=== PATIENT | female | born 1985 | race Caucasian/White ===

== ENCOUNTER 2017-04-26 13:46 | Outpatient (CLI) | payer BC ==
--- NOTE | 2017-04-26 17:15 | ULT ---
OBSTETRICAL ULTRASOUND: Date: 04-26-17 Comparison: None. History: 23-year-old female undergoing initial ultrasound of the pelvis secondary to . Technique: Multiplanar grayscale sonographic imaging of the pelvis is provided with transabdominal i maging. Adnexal regions are assessed with color flowspectral analysis. FINDINGS: The uterus measures 15.0 x 8.2 x 13.7 cm. There is a large complex lobulated heterogeneous hypoechoi c mass associated with the uterine fundus measuring in the 7.7 x 10.3 x 8.6 cm range, suggesting a l arge fundal fibroid. There is an intrauterine gestational sac present abutting the inferior aspect o f this uterine fibroid, which contains a single pole demonstrating a heart rate in the 1 85 beats/min range. The right ovary could not be visualized on this exam. The left ovary measures 4. 1 x 2.1 x 2.6 cm and demonstrates normal blood flow without evidence for mass. No free fluid is seen in the pelvic cul-de-sac. biometry: [place]-rump length 2.3 cm 9 weeks 0 days Gestational sac diameter 4.1 cm 9 weeks 4 days Average gestational age based on ultrasound is 9 weeks 2 days with an estimated date of delivery on 11-27-17. IMPRESSION: 1. Single intrauterine gestational sac as detailed above. Findings suggesting a large complex uterin e fibroid in the fundus measuring up to 10.3 cm. Recommend short term follow up imaging given the si ze of the suspected uterine fibroid and its proximity to the gestational sac. POS: [facility]
== END 2017-04-26 13:47 | disposition home or self-care (01) ==
LOC: ULT 13:46
PROVIDERS: ATTEND Family Medicine
DX: N91.2 Amenorrhea, unspecified (principal)
CPT/HCPCS: 76805

== ENCOUNTER 2017-08-31 04:07 | Day surgery (SDC) | payer BC ==
[2017-08-31 04:36] VITALS: BP 114/68; TEMP 98.7; BMI 29.5
[2017-08-31 05:47] LABS: Bilirubin Negative (Negative); Blood, Urine Negative (Negative); Clarity CLOUDY (Clear); Glucose, Urine (Dipstick) Negative (Negative); Leukocyte Small (Negative); Nitrite Negative (Negative); Protein, Urine (Dipstick) Negative (Neg-Trace); Specific Gravity, Urine 1.012 (1.002-1.036); Urobilinogen 0.2 mg/dL (0.2-1.0); pH, Urine 6.5 (5.0-9.0)
[2017-08-31 05:50] LABS: Bacteria/HPF 2+ HPF (None Seen); Pathc Cast-AUWi Flag 1.89 (0-2.49)
[2017-08-31 05:52] LABS: Yeast-AUWi Flag 72.3 (0-25.0)
[2017-08-31 06:13] LABS: RBC/HPF 0-3 HPF (0-3)
[2017-08-31 06:14] LABS: Hyaline Casts/LPF NONE SEEN LPF (0-3 Hyaline); Yeast-All Forms None Seen HPF (None Seen)
[2017-08-31 06:55] LABS: Bilirubin Negative (Negative); Blood, Urine Negative (Negative); Clarity CLEAR (Clear); Glucose, Urine (Dipstick) Negative (Negative); Leukocyte Negative (Negative); Nitrite Negative (Negative); Protein, Urine (Dipstick) Negative (Neg-Trace); Specific Gravity, Urine 1.013 (1.002-1.036); Urobilinogen 0.2 mg/dL (0.2-1.0); pH, Urine 6.5 (5.0-9.0)
[2017-08-31 06:57] LABS: Bacteria/HPF None Seen HPF (None Seen); Hyaline Casts/LPF 4-6 HYALINE CAST LPF (0-3 Hyaline); Pathc Cast-AUWi Flag 0.94 (0-2.49); RBC/HPF None Seen HPF (0-3); Squamous Epithelial 0-3 HPF (0-3); WBC/HPF None Seen HPF (0-3)
--- NOTE | 2017-08-31 07:11 | PRG ---
DATE OF SERVICE: 08/31/2017 PRIMARY SUPERVISOR BUFFING AND PASTING: Dr. Margaret Flores CHIEF COMPLAINT: Abdominal pain. HISTORY OF PRESENT ILLNESS: The patient is a 32-year-old G1, P0 female with an intrauterine at 27 weeks and 2 days who is presenting with a 2-day history of lower left pelvic pain that she reports it is worse with movement, getting out of bed, climbing stairs, walking. She reports when she is at rest it is much improved. She does admit she has had one episode where she has felt a contraction that her abdomen has gotten hard. Other than that, she has not felt any other contractions to her knowledge. The patient denies any burning or frequency of urination. She denies any change in discharge or leakage of fluid or vaginal bleeding. She denies fever, fall, headache, chest pain, shortness of breath, nausea, vomiting, diarrhea, constipation, any new rashes. She does report she has a fibroid about 7 cm when it was last measured on the upper right aspect of her uterus. PAST MEDICAL HISTORY: Negative. PAST SURGICAL HISTORY: Negative. OBSTETRIC HISTORY: This is her first complicated by a uterine fibroid. SOCIAL HISTORY: Denies drug, alcohol or tobacco use. ALLERGIES: No known drug allergies. MEDICATIONS: vitamins. OB LABS: Unavailable at time of dictation. REVIEW OF SYSTEMS: Per HPI. PHYSICAL EXAMINATION: VITAL SIGNS: Blood pressure is 102/58, heart rate of 86, respiratory rate of 18 , temperature 98.7. GENERAL: She appears to be in no acute distress. She is alert and oriented, cooperative and pleasant to interact with. HEENT: Normocephalic, atraumatic. LUNGS: Clear to auscultation bilaterally. HEART: Regular rate and rhythm. ABDOMEN: Soft. She does have some tenderness to palpation with deviation of the uterus to the right. There is some minimal suprapubic tenderness. EXTREMITIES: Nontender, nonedematous. She has no vertebral tenderness to palpation. She has some SI joint tenderness to palpation. CERVICAL EXAM: Closed, thick and high per nursing staff. heart tracing for abdominal pain in ; baseline is noted to be in the 150s with moderate long-term variability, appropriate for a 27 weeker. She does have accelerations. Tocometer shows some irritability, most of which is not felt by the patient. LABORATORY STUDIES: UA was positive for white blood cells, squamous cells, bacteria and leukocyte esterase. ASSESSMENT AND PLAN: The patient is a 32-year-old female with intrauterine at 27 weeks, presenting with primary complaint of ligament pain. Reassurance has been given to the patient. She has a reassuring heart tracing. There are some uterine contractions on the monitor, but rarely felt by the patient. Her urine is contaminated with skin and given the irritability we have opted to repeat that UA with a straight cath. The patient is being sent home with a prescription for Macrobid and has been given instructions to call back for the new UA results to determine whether she needs to take that antibiotic or not. The patient has been instructed to keep her appointment with Dr. Margaret Flores and has been given labor precautions. Addendum . CAth UA neg for sign of infection. Will attempt to contact ptPetros GOMEZ
== END 2017-08-31 07:00 | disposition home health service (06) ==
LOC: L&D/OP 04:07
PROVIDERS: ATTEND Family Medicine
DX: O99.89 Other specified diseases and conditions complicating pregnancy, childbirth and the puerperium (principal); R10.32 Left lower quadrant pain; O34.12 Maternal care for benign tumor of corpus uteri, second trimester; Z3A.27 27 weeks gestation of pregnancy; Z79.899 Other long term (current) drug therapy
CPT/HCPCS: 51701; 59025; 81001; 99283

== ENCOUNTER 2017-11-17 22:50 | Inpatient (IN) | payer BC ==
[2017-11-17 23:31] VITALS: BMI 32.5
[2017-11-17] MEDS ORDERED: Misoprostol 200 MCG TAB PR PRN (23:32)
[2017-11-17] MEDS ORDERED: HYDROcodone/Acetaminophen 5/325 mg Tablet PO PRN (23:32)
[2017-11-17] MEDS ORDERED: NS / Oxytocin 40 units/1000ml 1,000 ML IV PRN (23:32)
[2017-11-17] MEDS ORDERED: Zolpidem Tartrate 5 MG TAB PO PRN (23:32)
[2017-11-17] MEDS ORDERED: Lidocaine 1% (PF) 30 ML VIAL SC PRN (23:32)
[2017-11-17] MEDS ORDERED: Butorphanol Tartrate 1 MG/ML VIAL SLOW IVP PRN (23:32)
[2017-11-17] MEDS ORDERED: NS w/ Oxytocin 10 units 500 ML IV SCH (23:32)
[2017-11-17] MEDS ORDERED: Acetaminophen 500 MG TAB PO PRN (23:32)
[2017-11-17] MEDS ORDERED: Promethazine HCl 25 MG/ML VIAL IM PRN (23:32)
[2017-11-17] MEDS ORDERED: Ibuprofen 800 MG TAB PO PRN (23:32)
[2017-11-17] MEDS ORDERED: Ondansetron HCl/PF 4 MG/2 ML Vial IVP PRN (23:32)
[2017-11-17] MEDS ORDERED: Acetaminophen/Codeine 30-300mg Tablet PO PRN (23:32)
[2017-11-17] MEDS: Misoprostol 100 MCG TAB VAG SCH (23:54)
[2017-11-17 23:58] LABS: Hemoglobin 12.5 g/dL (12.0-16.0); Mean Corpuscular HGB CONC 36.1 g/dL (32.0-36.0); Mean Corpuscular Hemoglobin 33.4 pg (27.0-31.0); Mean Corpuscular Volume 92.3 fl (81.0-99.0); Mean Platelet Volume 6.7 fL (7.4-10.4); Platelet Count 156 thou/uL (130-400); Red Blood Cell (RBC) Count 3.75 mill/uL (4.20-5.40); White Blood Cell (WBC) Count 11.4 thou/uL (4.8-10.8)
[2017-11-18 00:37] LABS: Syphilis Antibody Nonreactive (Nonreactive); Syphilis Antibody Index 0.05 S/CO (<1.00 Non-Reactive)
[2017-11-18 00:38] LABS: HBSAg Index 0.21 S/CO (0-0.99); Hep B Surf Ag Non-Reactive S/CO (NonReactive)
[2017-11-18] MEDS: Misoprostol 100 MCG TAB VAG SCH ×4 (05:36→23:48)
[2017-11-18] MEDS: NS w/ Oxytocin 10 units 500 ML IV SCH ×2 (05:46→23:45)
[2017-11-18] MEDS ORDERED: DISCONTINUE ALL PREVIOUS NARCOTICS FS SCH (07:45)
[2017-11-18] MEDS ORDERED: Bupivacaine 0.5% 20 ML, fentaNYL Citrate/PF 400 MCG in Sodium Chloride 0.9% 72 ML EPIDURAL SCH ×2 (07:45→11:00)
[2017-11-18] MEDS: Lactated Ringer's 1,000 ML IV SCH ×5 (07:58→17:07)
[2017-11-18] MEDS ORDERED: Acetaminophen 325 MG TAB PO PRN (09:58)
[2017-11-18] MEDS ORDERED: diphenhydrAMINE 50 MG/ML VIAL IVP PRN (09:58)
[2017-11-18] MEDS ORDERED: Eucerin (Mineral Oil/Petrolatum,White) 30 gm Jar TOP PRN (09:58)
[2017-11-18] MEDS ORDERED: Ondansetron HCl/PF 4 MG/2 ML Vial IVP PRN (09:58)
[2017-11-18] MEDS ORDERED: ePHEDrine/0.9% NaCl/PF SYRINGE 50 mg/10 ml SLOW IVP PRN (09:58)
[2017-11-18] MEDS ORDERED: Promethazine HCl 25 MG/ML VIAL IM PRN (09:58)
[2017-11-18] MEDS ORDERED: Naloxone HCl 0.4 mg/ml Vial IVP PRN ×2 (09:58)
[2017-11-18] MEDS ORDERED: Lactated Ringer's 500 ML IV PRN (09:58)
[2017-11-18] MEDS ORDERED: Fentanyl 4mcg/Marcaine 0.1% Cassette 100 ML EPIDURAL SCH (10:00)
[2017-11-18] MEDS ORDERED: Communication Order-Pharmacy FS SCH (10:00)
[2017-11-18 23:49] LABS: #Lymphocytes 1.9 thou/uL (1.20-3.40); #Monocytes 1.1 thou/uL (0.11-0.59); #Neutrophils 9.2 thou/uL (1.40-6.50); %Basophils 0.2 % (0.0-1.0); %Eosinophils 0.4 % (0.0-10.0); %Lymphocytes 15.2 % (21.0-51.0); %Monocytes 8.9 % (0.0-10.0); %Neutrophils 75.3 % (42.0-75.0); Hemoglobin 8.6 g/dL (12.0-16.0); Mean Corpuscular HGB CONC 35.3 g/dL (32.0-36.0); Mean Corpuscular Hemoglobin 33.4 pg (27.0-31.0); Mean Corpuscular Volume 94.5 fl (81.0-99.0); Mean Platelet Volume 6.6 fL (7.4-10.4); Platelet Count 149 thou/uL (130-400); RBC Distribution Width 13.1 % (11.5-14.5); Red Blood Cell (RBC) Count 2.57 mill/uL (4.20-5.40); White Blood Cell (WBC) Count 12.3 thou/uL (4.8-10.8)
[2017-11-19 01:21] LABS: #Lymphocytes 1.3 thou/uL (1.20-3.40); #Monocytes 1.1 thou/uL (0.11-0.59); #Neutrophils 15.2 thou/uL (1.40-6.50); %Basophils 0.1 % (0.0-1.0); %Eosinophils 0.2 % (0.0-10.0); %Lymphocytes 7.3 % (21.0-51.0); %Monocytes 6.2 % (0.0-10.0); %Neutrophils 86.2 % (42.0-75.0); Hemoglobin 6.9 g/dL (12.0-16.0); Mean Corpuscular HGB CONC 35.7 g/dL (32.0-36.0); Mean Corpuscular Hemoglobin 33.8 pg (27.0-31.0); Mean Corpuscular Volume 94.7 fl (81.0-99.0); Mean Platelet Volume 6.6 fL (7.4-10.4); Platelet Count 128 thou/uL (130-400); RBC Distribution Width 13.2 % (11.5-14.5); Red Blood Cell (RBC) Count 2.04 mill/uL (4.20-5.40); White Blood Cell (WBC) Count 17.6 thou/uL (4.8-10.8)
[2017-11-19] MEDS: Misoprostol 100 MCG TAB VAG SCH ×2 (03:49→06:25)
--- NOTE | 2017-11-19 05:03 | OP ---
DATE OF SURGERY: 11/18/2017 PREOPERATIVE DIAGNOSIS: Term intrauterine in labor with prolonged second stage. POSTOPERATIVE DIAGNOSIS: Term intrauterine in labor with prolonged second stage, status po st delivery. PROCEDURES: 1. Normal spontaneous vaginal delivery with vacuum assist. 2. Repair of second degree of midline and left vaginal laceration with 3-0 Vicryl. SURGEON: Margaret Flores MD ANESTHESIA: Epidural anesthetic. PROCEDURE IN DETAIL: The patient has been complete and pushing for approximately 2-1/2 hours with pr olonged second stage with minimal progress over the last 1 hour. Discussed risks, benefits, and alte rnatives with the patient including delivery versus vacuum extraction, the patient and [facility] nd agree with trial of vacuum assist. The patient was placed in the dorsal lithotomy position. Letha neum was prepped and draped in the usual sterile technique. A mushroom cup vacuum assist was applied without difficulty. The patient delivered a viable female infant with one contraction and three pus hes with one single application and no pop off of the vacuum. Noted the baby was rotated approximate ly 45 degrees from ROP to OP position. Nose and mouth were bulb suctioned. Nuchal cord x1 reduced. Remainder of delivered without difficulty. Infant was placed on the mother's abdomen and cor d was clamped and cut, infant was handed to the care of the neonatology team. Cord blood was obtaine d. IV Pitocin started immediately. The placenta delivered spontaneous and appeared intact, noted th at there was a [id number] amount of vaginal bleeding, which improved with fundal massage, 800 mcg of rectal Cytotec was placed. Also noted a large amount of bleeding coming from a left vaginal s idewall laceration and midline laceration. This was sutured with 3-0 Vicryl and pressure was applied during this time, continued with vigorous fundal massage. At this point, the patient became symptom atic, complaining of dizziness, nausea, and vomiting. She was placed in Trendelenburg position. IV fluids were opened, second IV was started and increased IV fluids as well as noted blood pressure of 116/60 with a pulse of 65 and O2 saturation of 97%. Dr. Hubbard was called into the room to assess t he patient, felt that she was improving and remained stable. At this point, it was noted that there was minimal vaginal bleeding. The patient was alert and oriented, in no apparent distress. States s he was feeling much better. Also noted the patient had warm blankets and Olga Hugger applied during these procedures. She is to remain in LDR for an extended period for recovery. Noted estimated bloo d loss was 1000 mL.
[2017-11-19] MEDS ORDERED: Benzocaine/Menthol 20-0.5% 60 ML CAN TOP PRN (06:05)
[2017-11-19] MEDS ORDERED: Docusate Calcium (SURFAK) 240 MG CAP PO SCH ×2 (06:05→06:15)
[2017-11-19] MEDS ORDERED: Acetaminophen/Codeine 30-300mg Tablet PO PRN (06:05)
[2017-11-19] MEDS ORDERED: Lanolin Ointment 7 GM TUBE TOP PRN (06:05)
[2017-11-19] MEDS ORDERED: Prenatal Vitamin 1 TAB PO SCH (06:05)
[2017-11-19] MEDS ORDERED: Milk Of Magnesia 30 ML UDCUP PO PRN (06:05)
[2017-11-19] MEDS ORDERED: Bisacodyl 10 MG SUPP PR PRN (06:05)
[2017-11-19] MEDS ORDERED: Ondansetron HCl/PF 4 MG/2 ML Vial IVP PRN (06:05)
[2017-11-19] MEDS ORDERED: diphenhydrAMINE 25 MG CAP PO PRN (06:05)
[2017-11-19] MEDS ORDERED: Preparation H Ointment 28 GM TUBE PR PRN (06:05)
[2017-11-19] MEDS ORDERED: NS / Oxytocin 40 units/1000ml 1,000 ML IV SCH (06:05)
[2017-11-19] MEDS ORDERED: Ferrous Sulfate 325 MG TAB PO SCH (06:15)
[2017-11-19] MEDS ORDERED: Ibuprofen 800 MG TAB PO SCH (06:30)
[2017-11-19] MEDS: HYDROcodone/Acetaminophen 5/325 mg Tablet PO PRN ×2 (10:54→23:17)
[2017-11-19] MEDS: Docusate Calcium (SURFAK) 240 MG CAP PO SCH ×2 (10:55→22:52)
[2017-11-19 11:17] LABS: Hemoglobin 7.4 g/dL (12.0-16.0); Mean Corpuscular HGB CONC 36.1 g/dL (32.0-36.0); Mean Corpuscular Hemoglobin 33.7 pg (27.0-31.0); Mean Corpuscular Volume 93.5 fl (81.0-99.0); Mean Platelet Volume 6.7 fL (7.4-10.4); Platelet Count 119 thou/uL (130-400); RBC Distribution Width 13.7 % (11.5-14.5); Red Blood Cell (RBC) Count 2.18 mill/uL (4.20-5.40); White Blood Cell (WBC) Count 15.7 thou/uL (4.8-10.8)
[2017-11-19] MEDS ORDERED: Bupivacaine/Epinephrine 0.25% 30 ML VIAL ONE (11:26)
[2017-11-19] MEDS: Ibuprofen 800 MG TAB PO SCH ×2 (13:55→22:52)
[2017-11-19] MEDS: Ferrous Sulfate 325 MG TAB PO SCH (17:23)
[2017-11-20] MEDS: Ibuprofen 800 MG TAB PO SCH (05:47)
[2017-11-20] MEDS: HYDROcodone/Acetaminophen 5/325 mg Tablet PO PRN (05:47)
[2017-11-20 06:10] LABS: #Basophils 0.1 thou/uL (0.0-0.2); #Eosinphils 0.2 thou/uL (0.0-0.7); #Monocytes 0.7 thou/uL (0.11-0.59); #Neutrophils 9.8 thou/uL (1.40-6.50); %Basophils 0.4 % (0.0-1.0); %Eosinophils 1.2 % (0.0-10.0); %Lymphocytes 21.8 % (21.0-51.0); %Monocytes 5.2 % (0.0-10.0); %Neutrophils 71.4 % (42.0-75.0); Hemoglobin 7.3 g/dL (12.0-16.0); Mean Corpuscular HGB CONC 35.4 g/dL (32.0-36.0); Mean Corpuscular Hemoglobin 32.8 pg (27.0-31.0); Mean Corpuscular Volume 92.7 fl (81.0-99.0); Mean Platelet Volume 6.9 fL (7.4-10.4); Platelet Count 110 thou/uL (130-400); RBC Distribution Width 14.2 % (11.5-14.5); Red Blood Cell (RBC) Count 2.21 mill/uL (4.20-5.40); White Blood Cell (WBC) Count 13.8 thou/uL (4.8-10.8)
[2017-11-20 08:07] VITALS: BP 93/52; TEMP 98.3
[2017-11-20] MEDS ORDERED: Prenatal Vitamin 1 TAB PO SCH (09:00)
[2017-11-20] MEDS: Docusate Calcium (SURFAK) 240 MG CAP PO SCH (09:57)
[2017-11-20] MEDS: Ferrous Sulfate 325 MG TAB PO SCH (09:57)
== END 2017-11-20 14:20 | disposition home or self-care (01) | DRG 774 ==
LOC: L&D 22:50 → 3SW 11-19 12:25
PROVIDERS: ADMIT Family Medicine; ATTEND Family Medicine
PROC: 3E0P7VZ Introduction of Hormone into Female Reproductive, Via Natural or Artificial Opening (ICD-10-PCS; 2017-11-17)
PROC: 3E033VJ Introduction of Other Hormone into Peripheral Vein, Percutaneous Approach (ICD-10-PCS; 2017-11-17)
PROC: 10D07Z6 Extraction of Products of Conception, Vacuum, Via Natural or Artificial Opening (ICD-10-PCS; principal; 2017-11-18)
PROC: 0KQM0ZZ Repair Perineum Muscle, Open Approach (ICD-10-PCS; 2017-11-18)
DX: O24.429 Gestational diabetes mellitus in childbirth, unspecified control (principal); O67.8 Other intrapartum hemorrhage; O63.1 Prolonged second stage (of labor); Z3A.38 38 weeks gestation of pregnancy; Z37.0 Single live birth; O70.1 Second degree perineal laceration during delivery
CPT/HCPCS: 36415; 36416; 36430; 51701; 51702; 85025; 85027; 86780; 86850; 86900; 86901; 87340; J2001; J3010; J3490; J7050; P9016

== ENCOUNTER 2018-04-27 06:32 | Outpatient (CLI) | payer BC ==
--- NOTE | 2018-04-27 09:08 | ULT ---
TRANSABDOMINAL AND TRANSVAGINAL PELVIC ULTRASOUND: (Mckeon scale, color flow, and spectral Doppler) Date: 04/27/18 HISTORY: Uterine fibroid. FINDINGS: Uterus measures 14.5 x 8.3 x 7.1 cm with a large mass consistent with fibroid measuring 7.0 x 7.1 x 7 .0 cm. The endometrium measures 5.0 mm in thickness. No endometrial fluid seen. The right ovary measu res 2.2 x 3.2 x 2.5 cm. The left ovary measures 2.3 x 2.0 x 1.3 cm. No adnexal mass or free fluid in the cul-de-sac is seen. There is flow demonstrated to both ovaries. IMPRESSION: Large uterine fibroid. POS: [facility]
== END 2018-04-27 06:33 | disposition home or self-care (01) ==
LOC: BICULT 06:32
PROVIDERS: ATTEND Family Medicine
DX: D25.1 Intramural leiomyoma of uterus (principal)
CPT/HCPCS: 76856